=== PATIENT | female | born 1945 | race Caucasian/White ===

== ENCOUNTER → 2018-04-05 | Outpatient (CLI) | payer MEDICARE ==
[~2018-04-05] MED LIST: ATENOLOL25 MG PO; CARDIZEM120 MG PO; CEFTIN500 MG; COUMADIN5 M2 PO; DELTASONE10 MG PO; GLUCOPHAGE500 MG PO; LEVOFLOXACIN500 MG PO; SEROQUEL25 MG; SERZONE PO
[2018-04-05 15:21] LABS: BASO % 0.6 % (0.0-1.0); EOS # 0.2 10*3/uL (0.0-0.4); EOS % 3.2 % (1.0-4.0); HEMATOCRIT 32.3 % (37.0-47.0); HEMOGLOBIN 10.1 g/dl (12.0-16.0); LYMPH # 2.2 10*3/uL (1.3-4.4); LYMPH % 34.8 % (27.0-41.0); MEAN CORPUSCULAR HGB 27.8 pg (27.0-31.0); MEAN CORPUSCULAR HGB CONC 31.3 g/dl (33.0-37.0); MEAN PLATELET VOLUME 10.8 fl (9.6-12.3); MONO # 0.6 10*3/uL (0.1-1.0); MONO % 8.9 % (3.0-9.0); NEUT # 3.2 10*3/uL (2.3-7.9); NEUT % 52.3 % (47.0-73.0); PLATELET COUNT AUTOMATED 222 10*3/uL (130-400); RED BLOOD COUNT 3.63 10*6/uL (4.10-5.10); RED CELL DISTRI WIDTH 14.2 % (0-14.5); WHITE BLOOD COUNT 6.2 10*3/uL (4.8-10.8)
[2018-04-05 15:46] LABS: PHOSPHOROUS 2.8 mg/dL (2.5-4.9)
== END | disposition home or self-care (01) ==
LOC: LAB 14:50
PROVIDERS: Family Medicine
DX: R55 Syncope and collapse (principal); M25.50 Pain in unspecified joint

== ENCOUNTER → 2018-04-24 | Outpatient (CLI) | payer MEDICARE ==
--- NOTE | ~2018-04-24 | HM ---
[place], [place] HOLTER MONITOR REPORT NAME: [id number] UNIT #: [id number] ROOM: DOCTOR: ELLI TERESA MD BIRTHDATE: [birth year] DOS: 04/24/2018 ANALYSIS DATE: 05/02/2018. It is a 48-hour monitor. REASON FOR TESTING: Syncope. INTERPRETATION: 1. Baseline rhythm, sinus rhythm. Maximum heart rate was 129, minimum heart rate 41 and average heart rate was 50. 2. There were occasional premature ventricular complexes (0.1% burden), occasional premature atrial complexes (0.3% burden). 3. There were 4 episodes of nonsustained atrial tachycardia and the longest one was about 11 beats. 4. Atrial fibrillation burden was 0%. 5. No episodes of VT or VF. 6. There were no episodes of pauses. 7. No patient logged events were noted. Elli Teresa MD CM:HOLTER:HOLTER MONITOR REPORT [id number] ELLI TERESA MD
== END | disposition home or self-care (01) ==
LOC: MRI 04-12 10:00 → CARD 04-12 11:00 → MRI 09:55 → CARD 11:00
DX: R55 Syncope and collapse (principal); E11.9 Type 2 diabetes mellitus without complications

== ENCOUNTER → 2020-04-04 | Outpatient (CLI) | payer MEDICARE | END | disposition home or self-care (01) | LOC: RAD 14:11 | PROVIDERS: ATTEND Family Medicine | DX: M79.672 Pain in left foot (principal) ==